=== PATIENT | male | born 1955 | race Two or more races ===

== ENCOUNTER 2025-01-24 06:10 | Day surgery (SDC) | payer MEDICARE, MEDICAID, SELFPAY ==
--- NOTE | 2025-01-19 13:33 | ESHP_ITS ---
RE: BÁRBARA LAW : 1955 DATE OF ADMISSION: 01/24/2025 HISTORY OF PRESENT ILLNESS: A 69-year-old gentleman, Hungarian-speaking, he was referred to me with his elevated PSA. He has nocturia x1. Urinary flow is fair. PAST SURGICAL HISTORY: Appendectomy. SOCIAL HISTORY: He has 5 kids. ALLERGIES: NONE KNOWN. PAST MEDICAL HISTORY: He has a history of diabetes mellitus. No history of hypertension. HOME MEDICATIONS: He does not take any medication. PHYSICAL EXAMINATION: HEENT: Normal. NECK: Supple. LUNGS: Clear. CARDIOVASCULAR: Heart sounds are normal. ABDOMEN: Soft without any organomegaly. No guarding. No rigidity. EXTREMITIES: Normal. GENITOURINARY: Phallus is normal. Testes are down in scrotum. RECTAL: Reveals moderately enlarged prostate. Left lobe is bigger than the right. LABORATORY DATA: His PSA is 13.7. IMPRESSION: 1. Prostatism. 2. Prostatic obstruction. 3. Elevated PSA of 13.7. PLAN: Cystoscopy and transrectal prostatic ultrasound with ultrasound-guided prostatic needle biopsy. Planned procedure risks and complications have been discussed with the patient. The patient has understood them and agreed to proceed. DT: 13:20:13 TT: 13:31:00 Ref: [id number] - TID: [id number]
--- NOTE | 2025-01-20 06:47 | EKG_ITS ---
[facility] Test Date: 2025-01-20 Pat Name: BÁRBARA LAW Department: Room: - Gender: Male [employer] Superintendent: [facility] : 1955 Requested By: Liang Calix Order Number: [id number] Reading MD: Liang Calix Measurements Intervals [place] Rate: 55 P: 52 MA: 177 QRS: 82 QRSD: 102 T: 57 QT: 416 QTc: 400 Interpretive Statements SINUS BRADYCARDIA No previous ECG available for comparison /store/S0/[id number]/[id number]
[2025-01-20 08:17] VITALS: BMI 29.6
[2025-01-20 08:44] LABS: Collection Type, Urine Clean Catch; Squamous Epithelial Cell,Urine 0 /hpf (0-5)
[2025-01-20 09:26] LABS: Bilirubin,Urine Negative (Negative); Blood,Urine Negative (Negative); Clarity,Urine Clear (Clear/Hazy); Color,Urine Lt-Yellow (Lt Yel-Yel); Glucose, Urine Negative (Negative); Ketones,Urine Negative (Negative); Leukocyte Esterase,Urine Negative (Negative); Nitrite,Urine Negative (Negative); PH,Urine 6.0 (5.0-7.0); Protein,Urine Negative (Neg - Trace); RBC,Urine 2 /hpf (0-3); Specific Gravity,Urine 1.022 (1.001-1.035); Urobilinogen,Urine Negative mg/dL (0.0-1.0); WBC,Urine 2 /hpf (0-5)
[2025-01-20 09:37] LABS: Alanine Aminotransferase 23 U/L (10-49); Albumin, Serum 4.4 gm/dL (3.4-4.8); Albumin/Globulin Ratio 1.5 (1.2-2.2); Alkaline Phosphatase 92 U/L (46-116); Anion Gap 11 (7-16); Aspartate Amino Transferase 25 U/L (0-34); BUN/Creatinine Ratio 16 Ratio (12-20); Bilirubin,Total 0.6 mg/dL (0.3-1.2); Blood Urea Nitrogen 14 mg/dL (9-23); Calcium 9.7 mg/dL (8.3-10.6); Calcium (Corrected) 9.7 mg/dL (8.5-10.1); Carbon Dioxide 25.3 mMol/L (20.0-31.0); Chloride 108 mMol/L (98-107); Creatinine (Component) 0.9 mg/dL (0.6-1.3); Estimated Creatinine Clearance 84.9 mL/min (>60); Globulin 3.0 gm/dL (2.3-3.5); Glucose 109 mg/dL (74-106); Osmolality,Calculated 288 (275-295); Potassium 4.0 mMol/L (3.4-5.1); Sodium 144 mMol/L (136-145); Total Protein 7.4 gm/dL (5.7-8.2); eGFR > 60 See Note
[2025-01-20 09:38] LABS: Basophils # (Auto) 0.0 Thou/mm3 (0.0-0.2); Basophils % (Auto) 1 % (0-2.5); Eosinophils # (Auto) 0.1 Thou/mm3 (0.0-0.5); Eosinophils % (Auto) 2 % (0-10); Hematocrit 50.5 % (41.0-53.0); Hemoglobin 16.2 g/dL (13.5-16.0); Immature Granulocytes Auto 0.03 Thou/mm3 (0.00-0.00); Lymphocytes # (Auto) 2.6 Thou/mm3 (1.0-4.8); Lymphocytes % (Auto) 31 % (10-50); Mean Corpuscular HGB Conc 32.1 g/dl (31.0-37.0); Mean Corpuscular Hemoglobin 29.4 pg (25.0-35.0); Mean Corpuscular Volume 92 fL (80-100); Monocytes # (Auto) 0.6 Thou/mm3 (0.0-0.8); Monocytes % (Auto) 8 % (0-12); Neutrophils # (Auto) 4.8 Thou/mm3 (1.8-7.7); Neutrophils % (Auto) 58 % (37-80); Nucleated Red Blood Cell # 0.00 Thou/mm3 (0.00-0.00); Nucleated Red Blood Cell % 0 /100 WBC (0); Platelet Count 189 Thou/mm3 (140-440); RDW Standard Deviation 46.9 fL (35.1-43.9); Red Blood Count 5.51 Miln/mm3 (4.50-5.90); White Blood Count 8.2 Thou/mm3 (3.8-10.6)
[2025-01-24] VITALS (7 sets, daily range): BP systolic 132–152; BP diastolic 76–85; PULSE 59–66; RESP 14–20; TEMP 36.1–36.3; O2SAT 96–100; BMI 28.4
--- NOTE | 2025-01-24 07:50 | CHAP ---
Patient was sleeping. Prayed at foot of bed.
--- NOTE | 2025-01-24 08:30 | XR_ITS ---
Examination: Ultrasound transrectal prostate Date and time: January 24, 2025 0859 hours INDICATIONS: Prostate biopsies by physician in the OR today TECHNIQUE AND FINDINGS: Transrectal prostate sonographic images Prostate volume 86.59 cc IMPRESSION: Transrectal prostate sonographic images
--- NOTE | 2025-01-24 09:23 | SUR.PHASEI ---
pt received from OR in recovery bay 6. pt asleep but responds to voice, breathing unlabored on oxymask 6l. v/s stable. report received from Francisco KING and Angelia CLARK.
--- NOTE | 2025-01-24 09:57 | SUR.PHASEII ---
pt able to tolerate oral fluids without difficulty swallowing or nausea/vomiting.
--- NOTE | 2025-01-24 10:15 | SUR.PHASEII ---
pt awake and alert, breathing unlabored on room air. v/s stable. pt able to transfer to wheelchair with steady gait. d/c instructions given with daughter Yi in room, all questions answered. pt d/c via wheelchair with all belongings.
--- NOTE | 2025-01-24 10:28 | ESOP_ITS ---
RE: BÁRBARA ANTHONY : 1955 DATE OF OPERATION: 01/24/2025 PREOPERATIVE DIAGNOSIS: Prostatism, prostatic obstruction, elevated PSA of 13.7. POSTOPERATIVE DIAGNOSIS: Prostatism, prostatic obstruction, elevated PSA of 13.7. PROCEDURES PERFORMED: Cystoscopy, urethral dilatation, transrectal prostatic ultrasound with ultrasound-guided prostatic needle biopsy. ANESTHESIA: General. INDICATION: The patient is a 69-year-old gentleman with history of prostatism, prostatic obstruction, nocturia with slowing urinary stream. PSA is 13.7. Rectally, he has a moderately enlarged prostate with left lobe bigger than the right. He is now scheduled to have cystoscopy, transrectal prostatic ultrasound with ultrasound-guided prostatic needle biopsy. Planned procedure, risks, and complications have been discussed with the patient. The patient understood them and agreed to proceed. DESCRIPTION OF PROCEDURE: After the patient was brought to the operating table under adequate general anesthesia and dorsal lithotomy position, parts were prepped and draped in the usual fashion. Cystoscopy was then carried out, which revealed adequate urethral meatus, normal-appearing urethra. Prostatic urethra revealed a large prostate, bilobed. Left lobe is larger than right. The scope was introduced into the bladder. Residual urine is approximately 4 ounces yellow and clear and was sent for culture and sensitivity examination. There are no intravesical stones or tumors. Ureteral orifices were found to be normal in position and appearance. Scope was withdrawn. The urethra was dilated. The patient had some external urethral meatal stenosis, which was dilated when the cystoscopy was initially done. The patient was then turned in left lateral position. Transrectal prostatic ultrasound was carried out. Biopsies were obtained from both lobes. Using ultrasound guidance, prostatic volume was measured at 86.16 cubic cm. The patient tolerated the entire procedure well and left the room in good condition. DT: 09:31:07 TT: 10:26:00 Ref: [id number] - TID: [id number]
== END 2025-01-24 10:15 | disposition home or self-care (01) ==
PROVIDERS: Anesthesiology; PCP Physician Assistant; Referring Provider Surgery; Visit Provider Surgery
PROC: 0TJB8ZZ Inspection of Bladder, Via Natural or Artificial Opening Endoscopic (ICD-10-PCS; CPT 52000; principal; 2025-01-24 08:30)
DX: N40.1 Benign prostatic hyperplasia with lower urinary tract symptoms (principal); N13.8 Other obstructive and reflux uropathy; R39.198 Other difficulties with micturition; Z01.810 Encounter for preprocedural cardiovascular examination; N35.811 Other urethral stricture, male, meatal; R97.20 Elevated prostate specific antigen [PSA]; E11.9 Type 2 diabetes mellitus without complications
CPT/HCPCS: 52281; 55700; 36415; 76942; 80053; 81001; 85025; 87086; 93005; A4217; A4649; J0694; J1100; J2405; J2704; J3010